=== PATIENT | male | born 1970 | race Caucasian/White ===

== ENCOUNTER → 2020-12-30 | Outpatient (CLI) | payer BC | END | disposition home or self-care (01) | LOC: LABPAT 15:10 | PROVIDERS: ATTEND Student in an Organized Health Care Education/Training Program | DX: Z01.812 Encounter for preprocedural laboratory examination (principal); Z20.822 Contact with and (suspected) exposure to COVID-19 | CPT/HCPCS: U0003; C9803; U0005 ==

== ENCOUNTER 2021-01-03 07:35 | Day surgery (SDC) | payer BC ==
[2021-01-01 11:37] VITALS: BMI 35.9
[~2021-01-03 07:35] MED LIST: LACTATED RINGERS 1,000 ML IV SCH
[2021-01-03 08:04] VITALS: TEMP 97.5
[2021-01-03] MEDS ORDERED: LIDOCAINE 1% (10MG/ML) FOR IV START INTRADERMA ONE (08:10)
[2021-01-03] MEDS ORDERED: PROPOFOL 10 MG/ML 20 ML VIAL IV ONE (09:00)
[2021-01-03 09:14] VITALS: RESP 17
[2021-01-03 09:25] VITALS: BP 156/91; PULSE 66
--- NOTE | 2021-01-03 09:30 | P.OP ---
Date of Procedure: 01/03/21 Preoperative Diagnosis: Screening colonoscopy Postoperative Diagnosis: Sigmoid diverticulosis Procedure(s) Performed: Screening colonoscopy Anesthesia: MAC Surgeon: Maximus Cam Estimated Blood Loss (ml): 0 Condition: stable Disposition: PACU Operative Findings: Sigmoid diverticulosis Description of Procedure: Patient was brought into the Endo suite placed in the left lateral decubitus position underwent sedation per department of anesthesia prepped and draped usual sterile fashion timeout performed correct patient correct procedure correct site was verified rectal exam was performed no gross abnormalities are noted scope was placed from the rectum to the cecum with the slowly withdrawn being sure to visualize all braga of the colon on the way out there was sigmoid diverticuli noted. No other gross abnormalities noted scope was retroflexed in the rectum no gross abnormalities are noted patient tolerated the procedure well there are no apparent complications repeat colonoscopy in 10 years
== END 2021-01-03 09:53 | disposition home or self-care (01) ==
LOC: ORWHC2ENDO 07:35
PROVIDERS: ATTEND Student in an Organized Health Care Education/Training Program
DX: Z12.11 Encounter for screening for malignant neoplasm of colon (principal); K57.30 Diverticulosis of large intestine without perforation or abscess without bleeding; E78.5 Hyperlipidemia, unspecified; Z79.899 Other long term (current) drug therapy; Z80.7 Family history of other malignant neoplasms of lymphoid, hematopoietic and related tissues; Z88.0 Allergy status to penicillin
CPT/HCPCS: J2704; G0121